=== PATIENT | female | born 1965 | race Caucasian/White ===

== ENCOUNTER 2023-02-18 15:05 | Inpatient (IN) | payer OTHER ==
[~2023-02-18] VITALS: Ht 160 cm; Wt 69.9 kg
[2023-02-18 17:26] LABS: BASOPHILS % 0.9 % (0.0-2.0); EOSINOPHILS % 1.2 % (0.0-5.0); HEMATOCRIT. 28.8 % (36.0-48.0); HEMOGLOBIN. 9.8 g/dL (12.0-16.0); LYMPHOCYTES % 19.4 % (20.0-50.0); MEAN CORPUSCULAR HEMOGLOBIN 29.4 pg (28.0-32.0); MEAN CORPUSCULAR VOLUME 86.7 fL (81.0-99.0); MEAN PLATELET VOLUME 7.2 fl (7.4-10.4); MONOCYTES % 7.7 % (2.0-8.0); NEUTROPHILS % 70.8 % (40.0-76.0); PLATELET 372 x1000/uL (130-400); RED BLOOD CELL COUNT 3.32 mill/uL (4.2-5.4); RED CELL DISTRIBUTION WIDTH 14.8 % (11.6-14.6)
[2023-02-18 17:38] LABS: CHLORIDE 96 mEq/L (98-107)
[2023-02-19] VITALS (12 sets, daily range): BP systolic 115–152; BP diastolic 39–81; PULSE 86–97; RESP 16–20; TEMP 97.5–98.4
[2023-02-19] MEDS ORDERED: METO5TAB7 PO (04:14)
[2023-02-19] MEDS ORDERED: METO25TA6 PO (04:14)
[2023-02-19] MEDS ORDERED: MINO10TA PO (04:14)
[2023-02-19] MEDS ORDERED: LOSA50TA41 PO (04:14)
[2023-02-19] MEDS ORDERED: ASPI-1497 PO (04:14)
[2023-02-19] MEDS ORDERED: CLON-457 PO (04:14)
[2023-02-19] MEDS ORDERED: DAPA10TA PO (04:14)
[2023-02-19] MEDS ORDERED: HYDR-4135 PO (04:14)
[2023-02-19] MEDS ORDERED: LIP40 PO (04:14)
[2023-02-19] MEDS ORDERED: FURO80TA3 PO (04:14)
[2023-02-19] MEDS ORDERED: DEXTROSE 50% WATER 50ML SYRINGE IV PRN (07:00)
[2023-02-19] MEDS: INSULIN LISPRO 100 UNITS/ML SUBCUT SCH ×4 (08:10→21:44)
[2023-02-19] MEDS: BLOOD SUGAR DIAGNOSTIC STRIP TEST SCH ×4 (08:24→21:06)
[2023-02-19] MEDS: MINOXIDIL 10MG TABLET PO SCH ×2 (09:00→18:01)
[2023-02-19 11:13] LABS: BASOPHILS % 0.7 % (0.0-2.0); EOSINOPHILS % 1.7 % (0.0-5.0); HEMATOCRIT. 26.7 % (36.0-48.0); HEMOGLOBIN. 9.2 g/dL (12.0-16.0); LYMPHOCYTES % 20.2 % (20.0-50.0); MEAN CORPUSCULAR HEMOGLOBIN 29.8 pg (28.0-32.0); MEAN CORPUSCULAR VOLUME 86.2 fL (81.0-99.0); MEAN PLATELET VOLUME 6.9 fl (7.4-10.4); MONOCYTES % 9.3 % (2.0-8.0); NEUTROPHILS % 68.1 % (40.0-76.0); PLATELET 343 x1000/uL (130-400); RED CELL DISTRIBUTION WIDTH 14.6 % (11.6-14.6)
[2023-02-19 11:25] LABS: INR 0.9; PROTHROMBIN TIME 9.6 sec (9.6-11.0)
[2023-02-19 12:27] LABS: T4 FREE 1.11 ng/dL (0.76-1.46)
[2023-02-19] MEDS ORDERED: HYDRALAZINE 20MG/ML VIAL IV PRN (12:30)
[2023-02-19] MEDS ORDERED: HEPARIN 1000 UNITS/ML 10ML ONE (12:51)
[2023-02-19] MEDS ORDERED: LIDOCAINE HCL 1% 10 MG/ML 10ML VIAL ONE (12:51)
[2023-02-19] MEDS ORDERED: METHYLPREDNISOLONE SOD SUCC 125 MG/2 ML VIAL IV NR (13:45)
[2023-02-19 15:38] LABS: HEPATITIS B SURFACE ANTIGEN NEGATIVE
[2023-02-19] MEDS ORDERED: P20 PO (15:57)
[2023-02-19] MEDS ORDERED: DORZ10DR9 EACHEYE (16:03)
[2023-02-19] MEDS ORDERED: KETO5DRO38 EACHEYE (16:05)
[2023-02-19 17:42] LABS: CREATINE KINASE MB FRACTION 10.8 ng/mL (0.5-3.6)
[2023-02-19 21:02] LABS: CLARITY URINE CLOUDY (CLEAR); COLOR URINE YELLOW (YELLOW); KETONES URINE TRACE (NEGATIVE); LEUKOCYTE ESTERASE URINE NEGATIVE (NEGATIVE); NITRITE URINE NEGATIVE (NEGATIVE); OCCULT BLOOD URINE 2+ (NEGATIVE); PH URINE 5.5 (4.5-8.0); PROTEIN URINE 4+ (NEGATIVE); SPECIFIC GRAVITY URINE 1.013 (1.005-1.030); UROBILINOGEN URINE 0.2 E.U./dL (0.2-1.0)
[2023-02-19] MEDS: ATORVASTATIN CALCIUM 40MG TABLET PO SCH (21:43)
[2023-02-20] VITALS (7 sets, daily range): BP systolic 99–113; BP diastolic 34–49; PULSE 95–111; RESP 18–20; TEMP 97.6–98.6
[2023-02-20 01:09] LABS: CREATINE KINASE MB FRACTION 8.7 ng/mL (0.5-3.6)
[2023-02-20 06:35] LABS: BASOPHILS % 0.3 % (0.0-2.0); HEMATOCRIT. 26.6 % (36.0-48.0); HEMOGLOBIN. 9.3 g/dL (12.0-16.0); MEAN CORPUSCULAR VOLUME 85.9 fL (81.0-99.0); MEAN PLATELET VOLUME 7.7 fl (7.4-10.4); MONOCYTES % 1.2 % (2.0-8.0); NEUTROPHILS % 88.5 % (40.0-76.0); PLATELET 354 x1000/uL (130-400); RED BLOOD CELL COUNT 3.09 mill/uL (4.2-5.4); RED CELL DISTRIBUTION WIDTH 14.6 % (11.6-14.6)
[2023-02-20 07:00] LABS: CHLORIDE 98 mEq/L (98-107)
[2023-02-20] MEDS: BLOOD SUGAR DIAGNOSTIC STRIP TEST SCH ×4 (07:40→21:05)
[2023-02-20] MEDS: ENOXAPARIN 30MG/0.3ML SYR SUBCUT SCH (08:50)
[2023-02-20] MEDS: MINOXIDIL 10MG TABLET PO SCH ×2 (08:51→18:13)
[2023-02-20] MEDS: INSULIN LISPRO 100 UNITS/ML SUBCUT SCH ×4 (08:54→21:00)
[2023-02-20] MEDS ORDERED: ASPIRIN 81MG TABLET PO SCH (09:00)
[2023-02-20] MEDS ORDERED: NALOXONE HCL 0.4MG/ML VIAL IV PRN (11:15)
[2023-02-20] MEDS: LIDOCAINE 5% PATCH TOP SCH (12:22)
[2023-02-20] MEDS: HYDROCODONE/ACETAMINOPHEN 5/325MG TABLET PO PRN (12:24)
[2023-02-20] MEDS ORDERED: ATORVASTATIN CALCIUM 40MG TABLET PO SCH (21:00)
[2023-02-20] MEDS: ATORVASTATIN CALCIUM 40MG TABLET PO SCH (21:04)
[2023-02-21] VITALS (11 sets, daily range): BP systolic 102–140; BP diastolic 40–62; PULSE 54–105; RESP 16–20; TEMP 97.3–99.1
[2023-02-21] MEDS: BLOOD SUGAR DIAGNOSTIC STRIP TEST SCH ×4 (07:40→21:51)
[2023-02-21] MEDS: INSULIN LISPRO 100 UNITS/ML SUBCUT SCH ×4 (08:10→21:00)
[2023-02-21] MEDS: ENOXAPARIN 30MG/0.3ML SYR SUBCUT SCH (09:00)
[2023-02-21] MEDS: LIDOCAINE 5% PATCH TOP SCH (11:07)
[2023-02-21] MEDS: MINOXIDIL 10MG TABLET PO SCH ×2 (11:08→19:48)
[2023-02-21] MEDS: ONDANSETRON HCL 4MG/2ML INJ IV PRN (12:30)
[2023-02-21 13:07] LABS: ANTI-DNA DOUBLE STRANDED QUANT 1 IU/mL (0-9)
[2023-02-21] MEDS: ATORVASTATIN CALCIUM 40MG TABLET PO SCH (21:51)
[2023-02-21] MEDS ORDERED: METHYLPREDNISOLONE SOD SUCC 125 MG/2 ML VIAL IV NR (22:45)
[2023-02-22] VITALS: BP 105/46; PULSE 105; RESP 20; TEMP 99.9
[2023-02-22 04:00] VITALS: BP 103/41; PULSE 101; RESP 20; TEMP 98.8
[2023-02-22] MEDS: ONDANSETRON HCL 4MG/2ML INJ IV PRN (04:48)
[2023-02-22] MEDS: BLOOD SUGAR DIAGNOSTIC STRIP TEST SCH ×4 (07:40→21:13)
[2023-02-22 07:45] LABS: BASOPHILS % 0.8 % (0.0-2.0); EOSINOPHILS % 1.4 % (0.0-5.0); HEMATOCRIT. 24.1 % (36.0-48.0); HEMOGLOBIN. 8.1 g/dL (12.0-16.0); LYMPHOCYTES % 18.4 % (20.0-50.0); MEAN CORPUSCULAR HEMOGLOBIN 28.9 pg (28.0-32.0); MEAN CORPUSCULAR VOLUME 86.4 fL (81.0-99.0); MEAN PLATELET VOLUME 7.2 fl (7.4-10.4); MONOCYTES % 6.5 % (2.0-8.0); NEUTROPHILS % 72.9 % (40.0-76.0); PLATELET 331 x1000/uL (130-400); RED BLOOD CELL COUNT 2.79 mill/uL (4.2-5.4); RED CELL DISTRIBUTION WIDTH 14.8 % (11.6-14.6)
[2023-02-22 08:00] VITALS: BP 118/50; PULSE 102; RESP 20; TEMP 97.8
[2023-02-22] MEDS: INSULIN LISPRO 100 UNITS/ML SUBCUT SCH ×4 (08:10→21:13)
[2023-02-22] MEDS: ENOXAPARIN 30MG/0.3ML SYR SUBCUT SCH (09:00)
[2023-02-22] MEDS: LIDOCAINE 5% PATCH TOP SCH (09:12)
[2023-02-22] MEDS: MINOXIDIL 10MG TABLET PO SCH ×2 (09:15→17:38)
[2023-02-22 12:00] VITALS: BP 104/42; PULSE 107; RESP 20; TEMP 98.2
[2023-02-22 13:07] LABS: ANTI-MYELOPEROXIDASE AB < 0.2 units (0.0-0.9); ANTI-PROTEINASE 3 ABS < 0.2 units (0.0-0.9)
[2023-02-22 16:00] VITALS: BP 113/53; PULSE 110; RESP 20; TEMP 97.8
[2023-02-22 20:00] VITALS: BP 106/48; PULSE 110; RESP 20; TEMP 98.1
[2023-02-22] MEDS: ATORVASTATIN CALCIUM 40MG TABLET PO SCH (21:13)
[2023-02-23] VITALS: BP 113/51; PULSE 114; RESP 18; TEMP 98.8
[2023-02-23 04:00] VITALS: BP 115/47; PULSE 105; RESP 18; TEMP 99.1
[2023-02-23 08:00] VITALS: BP 124/52; PULSE 100; RESP 17; TEMP 97.5
[2023-02-23] MEDS: INSULIN LISPRO 100 UNITS/ML SUBCUT SCH ×4 (08:10→21:41)
[2023-02-23] MEDS: BLOOD SUGAR DIAGNOSTIC STRIP TEST SCH ×4 (08:37→21:00)
[2023-02-23] MEDS: MINOXIDIL 10MG TABLET PO SCH ×2 (09:01→17:47)
[2023-02-23] MEDS: LIDOCAINE 5% PATCH TOP SCH (09:01)
[2023-02-23] MEDS: DOCUSATE SODIUM 100MG CAPSULE PO SCH ×2 (09:01→17:45)
[2023-02-23] MEDS: ENOXAPARIN 30MG/0.3ML SYR SUBCUT SCH (09:02)
[2023-02-23 12:00] VITALS: BP 113/51; PULSE 100; RESP 18; TEMP 97.5
[2023-02-23] MEDS: ONDANSETRON HCL 4MG/2ML INJ IV PRN (13:05)
[2023-02-23 16:00] VITALS: BP 120/52; PULSE 99; RESP 20; TEMP 96
[2023-02-23] MEDS: HYDROCODONE/ACETAMINOPHEN 5/325MG TABLET PO PRN (17:46)
[2023-02-23 20:00] VITALS: BP 132/70; PULSE 98; RESP 18; TEMP 99
[2023-02-23] MEDS: ATORVASTATIN CALCIUM 40MG TABLET PO SCH (21:40)
[2023-02-24] VITALS (20 sets, daily range): BP systolic 99–135; BP diastolic 42–65; PULSE 68–104; RESP 12–20; TEMP 96.9–98.2
[2023-02-24] MEDS: BLOOD SUGAR DIAGNOSTIC STRIP TEST SCH ×4 (05:52→21:00)
[2023-02-24] MEDS: INSULIN LISPRO 100 UNITS/ML SUBCUT SCH ×4 (05:52→22:18)
[2023-02-24 05:53] LABS: BASOPHILS % 0.4 % (0.0-2.0); EOSINOPHILS % 1.4 % (0.0-5.0); HEMATOCRIT. 24.3 % (36.0-48.0); HEMOGLOBIN. 8.5 g/dL (12.0-16.0); INR 0.9; LYMPHOCYTES % 19.7 % (20.0-50.0); MEAN CORPUSCULAR HEMOGLOBIN 29.9 pg (28.0-32.0); MEAN CORPUSCULAR VOLUME 85.8 fL (81.0-99.0); MONOCYTES % 8.3 % (2.0-8.0); NEUTROPHILS % 70.2 % (40.0-76.0); PLATELET 357 x1000/uL (130-400); PROTHROMBIN TIME 9.4 sec (9.6-11.0); RED BLOOD CELL COUNT 2.83 mill/uL (4.2-5.4); RED CELL DISTRIBUTION WIDTH 14.8 % (11.6-14.6)
[2023-02-24] MEDS: LIDOCAINE 5% PATCH TOP SCH (08:51)
[2023-02-24] MEDS ORDERED: LIDOCAINE HCL 1% 10 MG/ML 10ML VIAL ONE (09:52)
[2023-02-24] MEDS ORDERED: FENTANYL CITRATE/PF 50MCG/ML 2ML VIAL ONE (10:02)
[2023-02-24] MEDS ORDERED: FENTANYL CITRATE/PF 50MCG/ML 2ML VIAL IV ONE (10:45)
[2023-02-24] MEDS: DOCUSATE SODIUM 100MG CAPSULE PO SCH ×2 (12:21→16:46)
[2023-02-24] MEDS: MINOXIDIL 10MG TABLET PO SCH ×2 (12:22→16:47)
[2023-02-24] MEDS: ENOXAPARIN 30MG/0.3ML SYR SUBCUT SCH (12:23)
[2023-02-24 15:30] LABS: HEMOGLOBIN 7.9 g/dL (12.0-16.0)
[2023-02-24] MEDS ORDERED: LACTULOSE 20G/30ML UDC PO NR (16:00)
[2023-02-24] MEDS ORDERED: MORPHINE SULFATE 2 MG/ML CPJ (NOT FOR IM USE) IV PRN (17:00)
[2023-02-24 18:29] LABS: HEPATITIS B SURFACE ANTIGEN NEGATIVE
[2023-02-24] MEDS: ATORVASTATIN CALCIUM 40MG TABLET PO SCH (22:17)
[2023-02-25] VITALS (10 sets, daily range): BP systolic 100–129; BP diastolic 44–74; PULSE 73–109; RESP 17–20; TEMP 96.8–98.4
[2023-02-25] MEDS ORDERED: PREDNISONE 20MG TABLET PO NR (07:00)
[2023-02-25] MEDS: BLOOD SUGAR DIAGNOSTIC STRIP TEST SCH ×4 (07:40→21:00)
[2023-02-25] MEDS: INSULIN LISPRO 100 UNITS/ML SUBCUT SCH ×4 (08:10→22:48)
[2023-02-25 09:06] LABS: ANA IFA Negative (.)
[2023-02-25] MEDS: DOCUSATE SODIUM 100MG CAPSULE PO SCH ×2 (10:12→18:16)
[2023-02-25] MEDS: MINOXIDIL 10MG TABLET PO SCH ×2 (10:15→18:16)
[2023-02-25] MEDS: LIDOCAINE 5% PATCH TOP SCH (10:15)
[2023-02-25] MEDS: MYCOPHENOLATE MOFETIL 250MG CAPSULE PO SCH ×2 (10:21→22:46)
[2023-02-25 13:11] LABS: ATYPICAL P-ANCA <1:20 titer (Neg:<1:20); CYTOPLASMIC C-ANCA <1:20 titer (Neg:<1:20); PERINUCLEAR P-ANCA <1:20 titer (Neg:<1:20)
[2023-02-25] MEDS: ATORVASTATIN CALCIUM 40MG TABLET PO SCH (22:46)
[2023-02-25 22:51] LABS: HEMATOCRIT 29.4 % (36.0-48.0); HEMOGLOBIN 10.1 g/dL (12.0-16.0)
[2023-02-26] VITALS (35 sets, daily range): BP systolic 69–173; BP diastolic 9–160; PULSE 69–107; RESP 7–40; TEMP 97.9–98.5
[2023-02-26 06:12] LABS: BASOPHILS % 0.1 % (0.0-2.0); HEMATOCRIT. 27.1 % (36.0-48.0); HEMOGLOBIN. 9.3 g/dL (12.0-16.0); LYMPHOCYTES % 11.4 % (20.0-50.0); MEAN CORPUSCULAR HEMOGLOBIN 29.4 pg (28.0-32.0); MEAN CORPUSCULAR VOLUME 85.4 fL (81.0-99.0); MONOCYTES % 9.5 % (2.0-8.0); PLATELET 291 x1000/uL (130-400); RED BLOOD CELL COUNT 3.18 mill/uL (4.2-5.4); RED CELL DISTRIBUTION WIDTH 15.1 % (11.6-14.6)
[2023-02-26] MEDS ORDERED: THROMBIN (BOVINE) 5000 UNITS/VIAL TOP ONE (06:22)
[2023-02-26] MEDS ORDERED: GENTAMICIN SULF 40MG/ML 2ML VIAL ONE (06:22)
[2023-02-26] MEDS ORDERED: LIDOCAINE HCL 1%/EPI 1:200,000 30 ML VIAL ONE (06:22)
[2023-02-26] MEDS ORDERED: ACETAMINOPHEN 500MG TABLET ONE (06:23)
[2023-02-26] MEDS: BLOOD SUGAR DIAGNOSTIC STRIP TEST SCH ×4 (07:40→21:48)
[2023-02-26] MEDS: INSULIN LISPRO 100 UNITS/ML SUBCUT SCH ×4 (08:10→21:54)
[2023-02-26] MEDS: MINOXIDIL 10MG TABLET PO SCH ×2 (09:00→16:36)
[2023-02-26] MEDS: DOCUSATE SODIUM 100MG CAPSULE PO SCH ×2 (09:00→16:36)
[2023-02-26] MEDS: MYCOPHENOLATE MOFETIL 250MG CAPSULE PO SCH ×2 (09:00→21:00)
[2023-02-26] MEDS: LIDOCAINE 5% PATCH TOP SCH (09:09)
[2023-02-26] MEDS ORDERED: PROPOFOL 200MG/20ML VIAL IV ONE (09:31)
[2023-02-26] MEDS ORDERED: VECURONIUM BROMIDE 10 MG/VIAL IV ONE (09:31)
[2023-02-26] MEDS ORDERED: METOCLOPRAMIDE HCL 10MG/2ML VIAL ONE (09:31)
[2023-02-26] MEDS ORDERED: ONDANSETRON HCL 4MG/2ML INJ ONE (09:31)
[2023-02-26] MEDS ORDERED: PROPOFOL 10MG/ML 100ML 100 ML IV ONE (09:36)
[2023-02-26] MEDS ORDERED: DEXMEDETOMIDINE 400 MCG/100 ML 100 ML IV ONE (09:36)
[2023-02-26] MEDS ORDERED: NICARDIPINE 40MG/200ML PREMIX 200 ML IV ONE (09:36)
[2023-02-26] MEDS ORDERED: DEXAMETHASONE 4MG/ML 1ML VIAL ONE (09:44)
[2023-02-26] MEDS ORDERED: LABETALOL HCL 5MG/ML VIAL 20ML IV ONE (09:45)
[2023-02-26] MEDS ORDERED: FENTANYL CITRATE/PF 50MCG/ML 2ML VIAL ONE ×2 (11:05→11:47)
[2023-02-26] MEDS ORDERED: MIDAZOLAM HCL 2 MG/2 ML VIAL ONE (11:05)
[2023-02-26] MEDS ORDERED: ALBUMIN HUMAN 12.5G/250ML (5%) IV ONE (11:07)
[2023-02-26] MEDS ORDERED: NICARDIPINE 100 MG in SODIUM CHLORIDE 0.9% 60 ML IV PRN (11:15)
[2023-02-26] MEDS ORDERED: DEXT 5%/LACTATED RINGERS 1,000 ML IV SCH (11:30)
[2023-02-26] MEDS ORDERED: ALBUMIN HUMAN 25GM/100ML (25%) IV ONE (11:45)
[2023-02-26] MEDS ORDERED: HYDROMORPHONE HCL/PF 2MG/ML CPJ ONE (12:43)
[2023-02-26] MEDS ORDERED: ONDANSETRON HCL 4MG/2ML INJ IV PRN (12:45)
[2023-02-26] MEDS ORDERED: FENTANYL CITRATE/PF 50MCG/ML 2ML VIAL IV PRN (12:45)
[2023-02-26] MEDS ORDERED: GLYCOPYRROLATE 0.2 MG/ML 2ML VIAL ONE (13:12)
[2023-02-26] MEDS ORDERED: NEOSTIGMINE METHYLSULFATE 1MG/ML 10 ML VIAL ONE (13:12)
[2023-02-26] MEDS ORDERED: CALCIUM CHLORIDE 1GM/10ML SYR IV ONE (13:32)
[2023-02-26] MEDS ORDERED: CEFAZOLIN SODIUM 1000MG/VIAL IV SCH (14:00)
[2023-02-26] MEDS ORDERED: NALOXONE HCL 0.4MG/ML VIAL IV PRN (14:00)
[2023-02-26] MEDS: DEXAMETHASONE 4MG/ML 1ML VIAL IV SCH ×2 (14:29→17:29)
[2023-02-26] MEDS: ALBUMIN HUMAN 12.5G/250ML (5%) IV NR ×2 (14:49→15:03)
[2023-02-26] MEDS ORDERED: ALBUMIN HUMAN 12.5G/250ML (5%) IV NR (15:30)
[2023-02-26] MEDS: SODIUM CHLORIDE 0.9% 1,000 ML IV SCH (15:49)
[2023-02-26] MEDS: HYDROMORPHONE HCL/PF 2MG/ML CPJ IV PRN ×3 (17:29→21:54)
[2023-02-26] MEDS ORDERED: NOREPINEPHRINE 8 MG in DEXT 5% WATER 242 ML IV PRN (17:30)
[2023-02-26 19:53] LABS: HEMATOCRIT 24.2 % (36.0-48.0); HEMOGLOBIN 8.2 g/dL (12.0-16.0)
[2023-02-26] MEDS: ATORVASTATIN CALCIUM 40MG TABLET PO SCH (21:00)
[2023-02-27] VITALS (37 sets, daily range): BP systolic 33–135; BP diastolic 23–82; PULSE 72–96; RESP 8–20; TEMP 97.5–98.7
[2023-02-27] MEDS: DEXAMETHASONE 4MG/ML 1ML VIAL IV SCH ×3 (00:02→12:00)
[2023-02-27] MEDS: MORPHINE SULFATE 4 MG/ML CPJ (NOT FOR IM USE) IV PRN ×4 (03:33→21:18)
[2023-02-27] MEDS: SODIUM CHLORIDE 0.9% 1,000 ML IV SCH ×2 (03:34→17:32)
[2023-02-27] MEDS: BLOOD SUGAR DIAGNOSTIC STRIP TEST SCH ×4 (06:06→21:00)
[2023-02-27] MEDS: INSULIN LISPRO 100 UNITS/ML SUBCUT SCH ×4 (06:08→21:00)
[2023-02-27 06:43] LABS: HEMOGLOBIN. 8.6 g/dL (12.0-16.0); MEAN CORPUSCULAR HEMOGLOBIN 28.8 pg (28.0-32.0); MEAN CORPUSCULAR VOLUME 86.7 fL (81.0-99.0); MEAN PLATELET VOLUME 7.2 fl (7.4-10.4); PLATELET 275 x1000/uL (130-400)
[2023-02-27] MEDS: MINOXIDIL 10MG TABLET PO SCH ×2 (09:00→17:00)
[2023-02-27] MEDS: DOCUSATE SODIUM 100MG CAPSULE PO SCH ×2 (09:00→17:31)
[2023-02-27] MEDS: LIDOCAINE 5% PATCH TOP SCH (09:33)
[2023-02-27 09:44] LABS: PLATELET ESTIMATE NORMAL
[2023-02-27] MEDS ORDERED: CEFAZOLIN 1000MG PREMIX 50 ML IV SCH (12:00)
[2023-02-27] MEDS: ATORVASTATIN CALCIUM 40MG TABLET PO SCH (21:19)
[2023-02-27] MEDS ORDERED: SODIUM CHLORIDE 0.9% 1,000 ML IV SCH (22:45)
[2023-02-28] VITALS: BP 91/38; PULSE 94; RESP 18; TEMP 98.2
[2023-02-28 04:05] VITALS: BP 97/33; PULSE 99; RESP 18; TEMP 98.3
[2023-02-28] MEDS: MORPHINE SULFATE 4 MG/ML CPJ (NOT FOR IM USE) IV PRN (06:06)
[2023-02-28] MEDS: BLOOD SUGAR DIAGNOSTIC STRIP TEST SCH ×4 (07:11→20:35)
[2023-02-28 08:00] VITALS: BP 106/42; PULSE 94; RESP 20; TEMP 98.4
[2023-02-28] MEDS: INSULIN LISPRO 100 UNITS/ML SUBCUT SCH ×3 (08:10→20:51)
[2023-02-28] MEDS: MINOXIDIL 10MG TABLET PO SCH (09:00)
[2023-02-28] MEDS: DOCUSATE SODIUM 100MG CAPSULE PO SCH ×2 (10:09→16:32)
[2023-02-28] MEDS: LIDOCAINE 5% PATCH TOP SCH (10:10)
[2023-02-28] MEDS: ONDANSETRON HCL 4MG/2ML INJ IV PRN (11:58)
[2023-02-28 12:00] VITALS: BP 100/40; PULSE 88; RESP 20; TEMP 97.6
[2023-02-28] MEDS ORDERED: HYDROCODONE/ACETAMINOPHEN 5/325MG TABLET PO PRN (13:15)
[2023-02-28 15:49] LABS: BASOPHILS % 0.1 % (0.0-2.0); EOSINOPHILS % 0.9 % (0.0-5.0); HEMATOCRIT. 22.7 % (36.0-48.0); HEMOGLOBIN. 7.6 g/dL (12.0-16.0); MEAN CORPUSCULAR VOLUME 86.8 fL (81.0-99.0); MEAN PLATELET VOLUME 7.2 fl (7.4-10.4); MONOCYTES % 14.4 % (2.0-8.0); NEUTROPHILS % 73.6 % (40.0-76.0); PLATELET 216 x1000/uL (130-400); RED BLOOD CELL COUNT 2.61 mill/uL (4.2-5.4); RED CELL DISTRIBUTION WIDTH 15.3 % (11.6-14.6)
[2023-02-28 16:00] VITALS: BP 116/51; PULSE 92; RESP 20; TEMP 97.9
[2023-02-28] MEDS ORDERED: MINOXIDIL 2.5MG TABLET PO SCH (17:00)
[2023-02-28 20:00] VITALS: BP 101/44; PULSE 94; RESP 18; TEMP 97.3
[2023-02-28] MEDS: ATORVASTATIN CALCIUM 40MG TABLET PO SCH (20:50)
[2023-03-01] VITALS (13 sets, daily range): BP systolic 109–164; BP diastolic 48–85; PULSE 83–106; RESP 16–20; TEMP 97.3–99.1
[2023-03-01] MEDS: IPRATROPIUM/ALBUTEROL 0.5-3(2.5)MG/3ML NEB HHN PRN (05:19)
[2023-03-01 06:28] LABS: BASOPHILS % 0.2 % (0.0-2.0); EOSINOPHILS % 1.4 % (0.0-5.0); HEMOGLOBIN. 8.6 g/dL (12.0-16.0); LYMPHOCYTES % 12.9 % (20.0-50.0); MEAN CORPUSCULAR HEMOGLOBIN 29.4 pg (28.0-32.0); MEAN CORPUSCULAR VOLUME 86.1 fL (81.0-99.0); MEAN PLATELET VOLUME 7.3 fl (7.4-10.4); MONOCYTES % 14.6 % (2.0-8.0); NEUTROPHILS % 70.9 % (40.0-76.0); PLATELET 237 x1000/uL (130-400); RED BLOOD CELL COUNT 2.91 mill/uL (4.2-5.4); RED CELL DISTRIBUTION WIDTH 15.1 % (11.6-14.6)
[2023-03-01] MEDS: BLOOD SUGAR DIAGNOSTIC STRIP TEST SCH ×4 (07:40→20:14)
[2023-03-01] MEDS: INSULIN LISPRO 100 UNITS/ML SUBCUT SCH ×4 (08:10→20:14)
[2023-03-01] MEDS: DOCUSATE SODIUM 100MG CAPSULE PO SCH ×2 (08:55→17:37)
[2023-03-01] MEDS: HYDROCODONE/ACETAMINOPHEN 7.5/325MG TABLET PO PRN (09:00)
[2023-03-01] MEDS: LIDOCAINE 5% PATCH TOP SCH (09:26)
[2023-03-01] MEDS ORDERED: LACTULOSE 20G/30ML UDC PO NR (11:30)
[2023-03-01] MEDS: ATORVASTATIN CALCIUM 40MG TABLET PO SCH (20:24)
[2023-03-01] MEDS: ONDANSETRON HCL 4MG/2ML INJ IV PRN (20:24)
[2023-03-02] VITALS (9 sets, daily range): BP systolic 118–167; BP diastolic 46–72; PULSE 83–122; RESP 16–20; TEMP 94.5–100.6; O2SAT 95
[2023-03-02] MEDS: IPRATROPIUM/ALBUTEROL 0.5-3(2.5)MG/3ML NEB HHN PRN (01:57)
[2023-03-02] MEDS: HYDROCODONE/ACETAMINOPHEN 7.5/325MG TABLET PO PRN (02:17)
[2023-03-02] MEDS ORDERED: PIPERACILLIN/TAZOBACTAM 3.375 G in DEXTROSE 5% WATER 50 ML IV STA (04:40)
[2023-03-02] MEDS: ACETAMINOPHEN 650MG/20.3ML UDC PO PRN (05:06)
[2023-03-02] MEDS: PIPERACILLIN/TAZOBACTAM 3.375 G in DEXTROSE 5% WATER 50 ML IV SCH ×2 (06:19→20:47)
[2023-03-02] MEDS ORDERED: VANCOMYCIN 1.25GM PMX (XELLIA) 250 ML IV NR (06:30)
[2023-03-02 07:37] LABS: HEMATOCRIT. 23.4 % (36.0-48.0); HEMOGLOBIN. 7.8 g/dL (12.0-16.0); MEAN CORPUSCULAR HEMOGLOBIN 28.7 pg (28.0-32.0); MEAN CORPUSCULAR VOLUME 86.4 fL (81.0-99.0); MEAN PLATELET VOLUME 7.2 fl (7.4-10.4); PLATELET 204 x1000/uL (130-400); RED BLOOD CELL COUNT 2.71 mill/uL (4.2-5.4); RED CELL DISTRIBUTION WIDTH 14.7 % (11.6-14.6)
[2023-03-02] MEDS: BLOOD SUGAR DIAGNOSTIC STRIP TEST SCH ×4 (07:40→20:47)
[2023-03-02] MEDS: INSULIN LISPRO 100 UNITS/ML SUBCUT SCH ×4 (08:10→20:54)
[2023-03-02] MEDS: LIDOCAINE 5% PATCH TOP SCH (09:07)
[2023-03-02] MEDS: DOCUSATE SODIUM 100MG CAPSULE PO SCH ×2 (09:07→16:50)
[2023-03-02 09:27] LABS: PLATELET ESTIMATE NORMAL
[2023-03-02] MEDS ORDERED: LACTULOSE 20G/30ML UDC PO PRN (18:45)
[2023-03-02] MEDS: ONDANSETRON HCL 4MG/2ML INJ IV PRN (19:34)
[2023-03-02] MEDS: ATORVASTATIN CALCIUM 40MG TABLET PO SCH (20:46)
[2023-03-03] VITALS (17 sets, daily range): BP systolic 121–159; BP diastolic 60–74; PULSE 85–117; RESP 16–21; TEMP 97.3–100.2; O2SAT 96–97
[2023-03-03] MEDS: IPRATROPIUM/ALBUTEROL 0.5-3(2.5)MG/3ML NEB HHN SCH ×6 (01:53→21:26)
[2023-03-03] MEDS: BLOOD SUGAR DIAGNOSTIC STRIP TEST SCH ×4 (06:13→20:37)
[2023-03-03 06:38] LABS: HEMATOCRIT. 24.5 % (36.0-48.0); HEMOGLOBIN. 8.2 g/dL (12.0-16.0); MEAN CORPUSCULAR HEMOGLOBIN 28.7 pg (28.0-32.0); MEAN CORPUSCULAR VOLUME 85.6 fL (81.0-99.0); MEAN PLATELET VOLUME 7.1 fl (7.4-10.4); PLATELET 211 x1000/uL (130-400); RED BLOOD CELL COUNT 2.86 mill/uL (4.2-5.4); RED CELL DISTRIBUTION WIDTH 14.5 % (11.6-14.6)
[2023-03-03 07:19] LABS: PLATELET ESTIMATE NORMAL
[2023-03-03] MEDS: INSULIN LISPRO 100 UNITS/ML SUBCUT SCH ×4 (08:10→20:37)
[2023-03-03] MEDS: DOCUSATE SODIUM 100MG CAPSULE PO SCH ×2 (08:18→17:15)
[2023-03-03] MEDS: LIDOCAINE 5% PATCH TOP SCH (08:19)
[2023-03-03] MEDS: ONDANSETRON HCL 4MG/2ML INJ IV PRN ×2 (08:20→17:17)
[2023-03-03] MEDS: HYDROCODONE/ACETAMINOPHEN 7.5/325MG TABLET PO PRN (08:20)
[2023-03-03] MEDS: PIPERACILLIN/TAZOBACTAM 3.375 G in DEXTROSE 5% WATER 50 ML IV SCH ×2 (09:24→20:36)
[2023-03-03] MEDS: ACETAMINOPHEN 650MG/20.3ML UDC PO PRN (12:52)
[2023-03-03] MEDS: GUAIFENESIN 600MG ER TABLET PO SCH ×2 (17:17→20:37)
[2023-03-03] MEDS: DILTIAZEM HCL 30MG TABLET PO SCH ×2 (17:18→19:03)
[2023-03-03] MEDS ORDERED: POTASSIUM CHLORIDE 20MEQ TABLET SR PO NR (19:15)
[2023-03-03] MEDS: ATORVASTATIN CALCIUM 40MG TABLET PO SCH (20:37)
[2023-03-03] MEDS: BUDESONIDE 0.5MG/2ML NEB HHN SCH ×2 (21:25→23:00)
[2023-03-04] VITALS (11 sets, daily range): BP systolic 124–152; BP diastolic 52–66; PULSE 96–105; RESP 16–20; TEMP 97.6–99.9; O2SAT 97–98
[2023-03-04 00:09] LABS: CLARITY URINE TURBID (CLEAR); COLOR URINE YELLOW (YELLOW); KETONES URINE NEGATIVE (NEGATIVE); LEUKOCYTE ESTERASE URINE 1+ (NEGATIVE); NITRITE URINE NEGATIVE (NEGATIVE); OCCULT BLOOD URINE 1+ (NEGATIVE); PH URINE 5.5 (4.5-8.0); PROTEIN URINE 4+ (NEGATIVE); SPECIFIC GRAVITY URINE 1.023 (1.005-1.030); UROBILINOGEN URINE 0.2 E.U./dL (0.2-1.0)
[2023-03-04] MEDS: IPRATROPIUM/ALBUTEROL 0.5-3(2.5)MG/3ML NEB HHN SCH ×6 (00:38→19:46)
[2023-03-04] MEDS: DILTIAZEM HCL 30MG TABLET PO SCH ×2 (05:29→17:29)
[2023-03-04] MEDS: BLOOD SUGAR DIAGNOSTIC STRIP TEST SCH ×4 (06:17→20:32)
[2023-03-04] MEDS: INSULIN LISPRO 100 UNITS/ML SUBCUT SCH ×4 (06:18→20:34)
[2023-03-04 06:30] LABS: HEMATOCRIT. 22.8 % (36.0-48.0); HEMOGLOBIN. 7.7 g/dL (12.0-16.0); MEAN CORPUSCULAR HEMOGLOBIN 29.1 pg (28.0-32.0); MEAN CORPUSCULAR VOLUME 85.8 fL (81.0-99.0); MEAN PLATELET VOLUME 6.9 fl (7.4-10.4); PLATELET 190 x1000/uL (130-400); RED BLOOD CELL COUNT 2.65 mill/uL (4.2-5.4); RED CELL DISTRIBUTION WIDTH 14.5 % (11.6-14.6)
[2023-03-04] MEDS: LIDOCAINE 5% PATCH TOP SCH (08:45)
[2023-03-04] MEDS: DOCUSATE SODIUM 100MG CAPSULE PO SCH ×2 (08:48→17:29)
[2023-03-04] MEDS: GUAIFENESIN 600MG ER TABLET PO SCH ×2 (08:49→21:19)
[2023-03-04] MEDS: PIPERACILLIN/TAZOBACTAM 3.375 G in DEXTROSE 5% WATER 50 ML IV SCH ×2 (08:49→21:07)
[2023-03-04] MEDS: BUDESONIDE 0.5MG/2ML NEB HHN SCH (08:53)
[2023-03-04] MEDS: ONDANSETRON HCL 4MG/2ML INJ IV PRN ×2 (12:43→19:51)
[2023-03-04] MEDS ORDERED: PANTOPRAZOLE SODIUM 40 MG/VIAL IV NR (13:15)
[2023-03-04] MEDS ORDERED: VANCOMYCIN 1G PREMIX 200 ML IV NR (15:00)
[2023-03-04] MEDS: ATORVASTATIN CALCIUM 40MG TABLET PO SCH (21:19)
[2023-03-05] VITALS (16 sets, daily range): BP systolic 125–190; BP diastolic 50–94; PULSE 84–105; RESP 16–20; TEMP 97.2–98.1; O2SAT 95–98
[2023-03-05] MEDS: BUDESONIDE 0.5MG/2ML NEB HHN SCH ×3 (00:21→20:30)
[2023-03-05] MEDS: IPRATROPIUM/ALBUTEROL 0.5-3(2.5)MG/3ML NEB HHN SCH ×5 (00:21→20:30)
[2023-03-05] MEDS: DILTIAZEM HCL 30MG TABLET PO SCH ×2 (05:23→17:25)
[2023-03-05 05:27] LABS: PLATELET ESTIMATE NORMAL
[2023-03-05] MEDS: BLOOD SUGAR DIAGNOSTIC STRIP TEST SCH ×4 (07:40→21:00)
[2023-03-05] MEDS: INSULIN LISPRO 100 UNITS/ML SUBCUT SCH ×4 (08:10→21:00)
[2023-03-05] MEDS ORDERED: LIDOCAINE HCL/PF 1% 10 MG/ML 5ML VIAL ONE (08:55)
[2023-03-05] MEDS: LIDOCAINE 5% PATCH TOP SCH (09:00)
[2023-03-05] MEDS: GUAIFENESIN 600MG ER TABLET PO SCH ×2 (10:52→22:06)
[2023-03-05] MEDS: PIPERACILLIN/TAZOBACTAM 3.375 G in DEXTROSE 5% WATER 50 ML IV SCH ×2 (10:52→21:58)
[2023-03-05] MEDS: DOCUSATE SODIUM 100MG CAPSULE PO SCH ×2 (10:52→17:25)
[2023-03-05 12:41] LABS: HEMATOCRIT. 23.5 % (36.0-48.0); HEMOGLOBIN. 7.9 g/dL (12.0-16.0); MEAN CORPUSCULAR HEMOGLOBIN 28.9 pg (28.0-32.0); MEAN CORPUSCULAR VOLUME 85.9 fL (81.0-99.0); MEAN PLATELET VOLUME 6.9 fl (7.4-10.4); PLATELET 196 x1000/uL (130-400); RED BLOOD CELL COUNT 2.74 mill/uL (4.2-5.4); RED CELL DISTRIBUTION WIDTH 14.8 % (11.6-14.6)
[2023-03-05] MEDS: CLONIDINE 0.1MG TABLET PO PRN (18:41)
[2023-03-05 21:19] LABS: PLATELET ESTIMATE NORMAL
[2023-03-05] MEDS: ATORVASTATIN CALCIUM 40MG TABLET PO SCH (22:06)
[2023-03-06] VITALS (23 sets, daily range): BP systolic 131–162; BP diastolic 49–88; PULSE 84–98; RESP 14–20; TEMP 97.9–99.3; O2SAT 95–97
[2023-03-06] MEDS: IPRATROPIUM/ALBUTEROL 0.5-3(2.5)MG/3ML NEB HHN SCH ×6 (00:23→21:29)
[2023-03-06] MEDS: DILTIAZEM HCL 30MG TABLET PO SCH ×2 (05:12→17:41)
[2023-03-06 06:15] LABS: BASOPHILS % 0.5 % (0.0-2.0); EOSINOPHILS % 1.7 % (0.0-5.0); HEMATOCRIT. 21.8 % (36.0-48.0); HEMOGLOBIN. 7.5 g/dL (12.0-16.0); LYMPHOCYTES % 9.5 % (20.0-50.0); MEAN CORPUSCULAR HEMOGLOBIN 29.1 pg (28.0-32.0); MEAN CORPUSCULAR VOLUME 84.2 fL (81.0-99.0); MEAN PLATELET VOLUME 6.6 fl (7.4-10.4); NEUTROPHILS % 78.3 % (40.0-76.0); PLATELET 181 x1000/uL (130-400); RED BLOOD CELL COUNT 2.59 mill/uL (4.2-5.4); RED CELL DISTRIBUTION WIDTH 14.5 % (11.6-14.6)
[2023-03-06 06:22] LABS: CHLORIDE 95 mEq/L (98-107)
[2023-03-06] MEDS ORDERED: HEPARIN 1000 UNITS/ML 10ML ONE (07:10)
[2023-03-06] MEDS ORDERED: LIDOCAINE HCL 1% 10 MG/ML 10ML VIAL ONE (07:10)
[2023-03-06] MEDS ORDERED: FENTANYL CITRATE/PF 50MCG/ML 2ML VIAL ONE (07:47)
[2023-03-06] MEDS: BLOOD SUGAR DIAGNOSTIC STRIP TEST SCH ×4 (07:51→21:06)
[2023-03-06] MEDS: INSULIN LISPRO 100 UNITS/ML SUBCUT SCH ×4 (07:51→21:00)
[2023-03-06] MEDS ORDERED: FENTANYL CITRATE/PF 50MCG/ML 2ML VIAL IV NR (08:15)
[2023-03-06] MEDS: PIPERACILLIN/TAZOBACTAM 3.375 G in DEXTROSE 5% WATER 50 ML IV SCH ×2 (09:10→21:07)
[2023-03-06] MEDS: GUAIFENESIN 600MG ER TABLET PO SCH ×2 (09:11→21:07)
[2023-03-06] MEDS: DOCUSATE SODIUM 100MG CAPSULE PO SCH ×3 (09:11→17:40)
[2023-03-06] MEDS: ONDANSETRON HCL 4MG/2ML INJ IV PRN (09:15)
[2023-03-06] MEDS: LIDOCAINE 5% PATCH TOP SCH (09:15)
[2023-03-06] MEDS: BUDESONIDE 0.5MG/2ML NEB HHN SCH (09:15)
[2023-03-06] MEDS ORDERED: POTASSIUM CHLORIDE 20MEQ/PACKET PO NR (10:45)
[2023-03-06] MEDS: CLONIDINE 0.1MG TABLET PO PRN (12:10)
[2023-03-06] MEDS: ACETAMINOPHEN 650MG/20.3ML UDC PO PRN (13:37)
[2023-03-06] MEDS: ATORVASTATIN CALCIUM 40MG TABLET PO SCH (21:07)
[2023-03-07] VITALS (15 sets, daily range): BP systolic 130–184; BP diastolic 70–98; PULSE 83–105; RESP 16–20; TEMP 97.7–99.6; O2SAT 96
[2023-03-07] MEDS: IPRATROPIUM/ALBUTEROL 0.5-3(2.5)MG/3ML NEB HHN SCH ×6 (00:12→21:08)
[2023-03-07] MEDS: DILTIAZEM HCL 30MG TABLET PO SCH ×2 (05:41→17:39)
[2023-03-07] MEDS: BLOOD SUGAR DIAGNOSTIC STRIP TEST SCH ×4 (05:45→21:50)
[2023-03-07] MEDS: INSULIN LISPRO 100 UNITS/ML SUBCUT SCH ×4 (05:45→21:00)
[2023-03-07] MEDS: DOCUSATE SODIUM 100MG CAPSULE PO SCH ×2 (09:06→17:00)
[2023-03-07] MEDS: GUAIFENESIN 600MG ER TABLET PO SCH ×2 (09:06→21:59)
[2023-03-07] MEDS: LIDOCAINE 5% PATCH TOP SCH (09:07)
[2023-03-07] MEDS: PIPERACILLIN/TAZOBACTAM 3.375 G in DEXTROSE 5% WATER 50 ML IV SCH ×2 (09:15→21:58)
[2023-03-07] MEDS ORDERED: EPOETIN ALFA-EPBX 4,000 UNIT/ML VIAL SUBCUT SCH (21:00)
[2023-03-07] MEDS: ATORVASTATIN CALCIUM 40MG TABLET PO SCH (21:59)
[2023-03-07] MEDS: CLONIDINE 0.1MG TABLET PO PRN (22:12)
[2023-03-07] MEDS: ONDANSETRON HCL 4MG/2ML INJ IV PRN (22:13)
[2023-03-08] VITALS (8 sets, daily range): BP systolic 121–183; BP diastolic 63–86; PULSE 62–99; RESP 18–20; TEMP 97.7–98.6; O2SAT 95
[2023-03-08] MEDS: DILTIAZEM HCL 30MG TABLET PO SCH ×2 (05:34→17:38)
[2023-03-08] MEDS: BLOOD SUGAR DIAGNOSTIC STRIP TEST SCH ×3 (06:20→17:33)
[2023-03-08 07:39] LABS: BASOPHILS % 0.8 % (0.0-2.0); EOSINOPHILS % 1.9 % (0.0-5.0); HEMATOCRIT. 21.3 % (36.0-48.0); HEMOGLOBIN. 7.5 g/dL (12.0-16.0); LYMPHOCYTES % 12.8 % (20.0-50.0); MEAN CORPUSCULAR HEMOGLOBIN 29.3 pg (28.0-32.0); MEAN CORPUSCULAR VOLUME 83.1 fL (81.0-99.0); MEAN PLATELET VOLUME 6.7 fl (7.4-10.4); MONOCYTES % 11.9 % (2.0-8.0); NEUTROPHILS % 72.6 % (40.0-76.0); PLATELET 145 x1000/uL (130-400); RED BLOOD CELL COUNT 2.56 mill/uL (4.2-5.4); RED CELL DISTRIBUTION WIDTH 14.8 % (11.6-14.6)
[2023-03-08 08:06] LABS: CHLORIDE 94 mEq/L (98-107)
[2023-03-08] MEDS: INSULIN LISPRO 100 UNITS/ML SUBCUT SCH ×3 (08:10→17:33)
[2023-03-08] MEDS: DOCUSATE SODIUM 100MG CAPSULE PO SCH ×2 (08:52→17:00)
[2023-03-08] MEDS: GUAIFENESIN 600MG ER TABLET PO SCH (08:53)
[2023-03-08] MEDS: LIDOCAINE 5% PATCH TOP SCH (08:57)
[2023-03-08] MEDS: CLONIDINE 0.1MG TABLET PO PRN ×2 (12:44→17:39)
[2023-03-08] MEDS: ONDANSETRON HCL 4MG/2ML INJ IV PRN ×2 (12:49→17:38)
[2023-03-08] MEDS ORDERED: HYDR-4001 MT (13:22)
[2023-03-08] MEDS ORDERED: ONDA4TAB11 PO (15:38)
[2023-03-08] MEDS ORDERED: TRAM50TA3 MT (15:58)
== END 2023-03-08 20:30 | disposition home health service (06) | DRG 471 ==
LOC: ER 15:38 → MICUSO 02-19 01:04 → EDBEDREQ 02-19 01:13 → ENRESERV 02-19 02:00 → 7WST 02-19 03:51 → MICUSO 02-26 13:45 → 7WST 02-27 13:11
PROVIDERS: ADMIT Internal Medicine; ATTEND Internal Medicine
PROC: 02HV33Z Insertion of Infusion Device into Superior Vena Cava, Percutaneous Approach (ICD-10-PCS; 2023-02-19)
PROC: B5181ZA Fluoroscopy of Superior Vena Cava using Low Osmolar Contrast, Guidance (ICD-10-PCS; 2023-02-19)
PROC: B548ZZA Ultrasonography of Superior Vena Cava, Guidance (ICD-10-PCS; 2023-02-19)
PROC: 5A1D70Z Performance of Urinary Filtration, Intermittent, Less than 6 Hours Per Day (ICD-10-PCS; 2023-02-19)
PROC: 5A1D70Z Performance of Urinary Filtration, Intermittent, Less than 6 Hours Per Day (ICD-10-PCS; 2023-02-21)
PROC: 0TB03ZX Excision of Right Kidney, Percutaneous Approach, Diagnostic (ICD-10-PCS; 2023-02-24)
PROC: 5A1D70Z Performance of Urinary Filtration, Intermittent, Less than 6 Hours Per Day (ICD-10-PCS; 2023-02-24)
PROC: 30233N1 Transfusion of Nonautologous Red Blood Cells into Peripheral Vein, Percutaneous Approach (ICD-10-PCS; 2023-02-25)
PROC: 0RG20A0 Fusion of 2 or more Cervical Vertebral Joints with Interbody Fusion Device, Anterior Approach, Anterior Column, Open Approach (ICD-10-PCS; principal; 2023-02-26)
PROC: 0RB30ZZ Excision of Cervical Vertebral Disc, Open Approach (ICD-10-PCS; 2023-02-26)
PROC: 00NW0ZZ Release Cervical Spinal Cord, Open Approach (ICD-10-PCS; 2023-02-26)
PROC: 4A11X4G Monitoring of Peripheral Nervous Electrical Activity, Intraoperative, External Approach (ICD-10-PCS; 2023-02-26)
PROC: 5A1D70Z Performance of Urinary Filtration, Intermittent, Less than 6 Hours Per Day (ICD-10-PCS; 2023-02-26)
PROC: 5A1D70Z Performance of Urinary Filtration, Intermittent, Less than 6 Hours Per Day (ICD-10-PCS; 2023-02-27)
PROC: 5A1D70Z Performance of Urinary Filtration, Intermittent, Less than 6 Hours Per Day (ICD-10-PCS; 2023-03-01)
PROC: 5A1D70Z Performance of Urinary Filtration, Intermittent, Less than 6 Hours Per Day (ICD-10-PCS; 2023-03-03)
PROC: 02HV33Z Insertion of Infusion Device into Superior Vena Cava, Percutaneous Approach (ICD-10-PCS; 2023-03-05)
PROC: B548ZZA Ultrasonography of Superior Vena Cava, Guidance (ICD-10-PCS; 2023-03-05)
PROC: B5181ZA Fluoroscopy of Superior Vena Cava using Low Osmolar Contrast, Guidance (ICD-10-PCS; 2023-03-05)
PROC: 5A1D70Z Performance of Urinary Filtration, Intermittent, Less than 6 Hours Per Day (ICD-10-PCS; 2023-03-05)
PROC: 0JH63XZ Insertion of Tunneled Vascular Access Device into Chest Subcutaneous Tissue and Fascia, Percutaneous Approach (ICD-10-PCS; 2023-03-06)
PROC: 02H633Z Insertion of Infusion Device into Right Atrium, Percutaneous Approach (ICD-10-PCS; 2023-03-06)
PROC: B5181ZA Fluoroscopy of Superior Vena Cava using Low Osmolar Contrast, Guidance (ICD-10-PCS; 2023-03-06)
PROC: B548ZZA Ultrasonography of Superior Vena Cava, Guidance (ICD-10-PCS; 2023-03-06)
PROC: 5A1D70Z Performance of Urinary Filtration, Intermittent, Less than 6 Hours Per Day (ICD-10-PCS; 2023-03-07)
DX: M48.02 Spinal stenosis, cervical region (principal); A41.9 Sepsis, unspecified organism; E43 Unspecified severe protein-calorie malnutrition; G82.50 Quadriplegia, unspecified; N18.6 End stage renal disease; I21.4 Non-ST elevation (NSTEMI) myocardial infarction; E87.1 Hypo-osmolality and hyponatremia; I13.2 Hypertensive heart and chronic kidney disease with heart failure and with stage 5 chronic kidney disease, or end stage renal disease; N17.9 Acute kidney failure, unspecified; M47.12 Other spondylosis with myelopathy, cervical region; M50.022 Cervical disc disorder at C5-C6 level with myelopathy; M50.023 Cervical disc disorder at C6-C7 level with myelopathy; I50.30 Unspecified diastolic (congestive) heart failure; Z20.822 Contact with and (suspected) exposure to COVID-19; E11.65 Type 2 diabetes mellitus with hyperglycemia; E11.22 Type 2 diabetes mellitus with diabetic chronic kidney disease; E83.41 Hypermagnesemia; D63.8 Anemia in other chronic diseases classified elsewhere; D64.89 Other specified anemias; J20.9 Acute bronchitis, unspecified; R13.10 Dysphagia, unspecified; R79.89 Other specified abnormal findings of blood chemistry; E78.00 Pure hypercholesterolemia, unspecified; E87.8 Other disorders of electrolyte and fluid balance, not elsewhere classified; Z86.16 Personal history of COVID-19; Z79.82 Long term (current) use of aspirin; Z79.899 Other long term (current) drug therapy; Z98.1 Arthrodesis status; Z99.2 Dependence on renal dialysis; Z68.27 Body mass index [BMI] 27.0-27.9, adult
CPT/HCPCS: 36415; 36556; 36558; 36573; 36589; 70490; 71045; 72040; 72141; 74018; 74230; 76000; 76937; 77001; 77012; 80048; 80053; 80061; 80202; 81003; 82550; 82553; 82570; 82962; 83036; 83516; 83520; 83735; 83880; 84132; 84145; 84156; 84439; 84443; 84484; 85014; 85018; 85025; 86160; 86225; 86235; 86256; 86705; 86709; 86803; 86850; 86900; 86920; 87070; 87340; 87426; 87804; 88304; 88311; 90935; 92610; 92611; 93005; 93306; 93970; 94640; 95925; 95926; 95928; 95929; 97116; 97162; 97166; 97530; 99152; 99153; 99285; C1725; C1750; C1752; C1887; C9113; J0690; J0885; J1100; J1170; J1580; J1644; J1650; J1815; J2250; J2270; J2405; J2543; J2704; J2710; J2765; J2930; J3010; J3370; J3490; J7030; J7060; J7121; J7512; J7517; J7626; L0172; L8514; P9016; P9041; P9047; Q9957; A4315; C1713; G0500